=== PATIENT | male | born 1990 | race Caucasian/White ===

== ENCOUNTER 2021-12-13 20:29 | Emergency (ER) | payer BC, MEDICAID ==
[~2021-12-13] VITALS: Ht 177.8 cm; Wt 102.0 kg
[2021-12-13 22:58] LABS: BASOPHILS % 0.3 % (0.0-2.0); EOSINOPHILS % 2.5 % (0.0-5.0); HEMATOCRIT. 44.9 % (42.0-52.0); LYMPHOCYTES % 31.9 % (20.0-50.0); MEAN CORPUSCULAR HEMOGLOBIN 29.1 pg (28.0-32.0); MEAN CORPUSCULAR VOLUME 87.1 fL (80.0-94.0); MEAN PLATELET VOLUME 8.8 fl (7.4-10.4); MONOCYTES % 9.3 % (2.0-8.0); PLATELET 260 x1000/uL (130-400); RED BLOOD CELL COUNT 5.15 mill/uL (4.7-6.1); RED CELL DISTRIBUTION WIDTH 12.8 % (11.6-14.6)
[2021-12-13 23:05] LABS: CHLORIDE 108 mEq/L (98-107)
[2021-12-14 00:30] VITALS: BP 125/71
== END 2021-12-14 00:53 | disposition home or self-care (01) ==
LOC: ER 20:29
DX: R07.89 Other chest pain (principal); R11.0 Nausea
CPT/HCPCS: 36415; 71045; 80053; 84484; 85025; 93005; 99285

== ENCOUNTER 2024-11-11 12:27 | Emergency (ER) | payer MEDICAID ==
[~2024-11-11] VITALS: Ht 175.3 cm; Wt 83.0 kg
[2024-11-11 12:31] VITALS: O2SAT 98
[2024-11-11 12:34] VITALS: TEMP 37.1; O2SAT 100
[2024-11-11] MEDS ORDERED: OXYCODONE HCL/ACETAMINOPHEN 5/325MG TABLET PO ONE (14:45)
[2024-11-11 15:12] VITALS: BP 141/81; PULSE 71; RESP 18
[2024-11-11] MEDS: OXYCODONE HCL/ACETAMINOPHEN 5/325MG TABLET PO NR (15:12)
[2024-11-11] MEDS ORDERED: OXYC-100 MT (16:11)
== END 2024-11-11 16:19 | disposition home or self-care (01) ==
LOC: ER 12:27
DX: S32.028A Other fracture of second lumbar vertebra, initial encounter for closed fracture (principal); S32.038A Other fracture of third lumbar vertebra, initial encounter for closed fracture; S32.048A Other fracture of fourth lumbar vertebra, initial encounter for closed fracture; S00.11XA Contusion of right eyelid and periocular area, initial encounter; S04.31 Injury of trigeminal nerve, right side; S00.511A Abrasion of lip, initial encounter; S50.819A Abrasion of unspecified forearm, initial encounter; Y08.89XA Assault by other specified means, initial encounter; Y93.89 Activity, other specified; Y92.89 Other specified places as the place of occurrence of the external cause; Y99.8 Other external cause status
CPT/HCPCS: 71250; 72131; 99284